=== PATIENT | female | born 1950 | race Caucasian/White ===

== ENCOUNTER 2020-09-28 10:28 | Outpatient (REF) | payer MEDICARE, SELFPAY ==
[2020-09-28 11:28] LABS: MANUAL DIFF FLAG NO
[2020-09-28 11:51] LABS: Basophils Percent Auto 0.6 % (0-2); Eosinophils Absolute Auto 0.1 X10*3/uL (0.0-0.4); Hematocrit 44.2 % (37-47); Hemoglobin 14.8 g/dl (12.0-16.0); Imm Gran Abs Auto 0.02 X10*3/uL (0.00-0.03); Imm Gran Pct Auto 0.3 % (0.0-0.4); Lymphocytes Absolute Auto 1.3 X10*3/uL (1.2-4.9); Lymphocytes Percent Auto 18.3 % (20-40); Mean Corpuscular HGB Conc 33.5 g/dl (31.0-35.0); Mean Corpuscular Hemoglobin 30.1 pg (27.0-33.0); Mean Platelet Volume 10.5 fL (9.4-12.3); Monocytes Absolute Auto 0.5 X10*3/uL (0.1-1.2); Monocytes Percent Auto 7.6 % (2-11); Neutrophils Absolute Auto 5.1 X10*3/uL (2.0-8.3); Neutrophils Percent Auto 72.2 % (45-73); Platelet Count 343 X10*3/uL (160-400); Red Blood Count 4.91 X10*6/uL (4.20-5.50); Red Cell Distribution Width 12.5 % (11.0-16.0); White Blood Count 7.1 X10*3/uL (4.8-10.8)
[2020-09-28 12:13] LABS: Alanine Aminotransferase 16 U/L (0-31); Albumin Level 4.3 g/dL (3.5-5.0); Alkaline Phosphatase 57 U/L (39-117); Anion Gap 13 (12-20); Aspartate Amino Transferase 20 U/L (5-31); Bilirubin Total 0.7 mg/dL (0.0-1.0); Blood Urea Nitrogen 19 mg/dL (9-16); Carbon Dioxide 25 mmol/L (22-29); Chloride 105 mmol/L (96-108); Cholesterol 209 mg/dL; Estimated Glomerular Filt Rate > 60; Glucose Fasting 80 mg/dL (60-99); HDL Cholesterol 54 mg/dL; LDL Cholesterol Calculated 123 mg/dl; Potassium 4.8 mmol/L (3.3-5.1); Sodium 138 mmol/L (135-145); Total Protein 6.8 g/dL (6.5-8.0); Triglycerides 164 mg/dL
[2020-09-28 12:15] LABS: Microalbum/Creatinine Ratio Ur 13.7 ug/mg cr
[2020-09-28 12:23] LABS: Thyroid Stimulating Hormone 1.17 uIU/mL (0.32-4.0)
== END 2020-09-28 10:29 | disposition home or self-care (01) ==
LOC: HO.HMGCLDS 10:28
PROVIDERS: PCP Physician Assistant; Visit Provider Physician Assistant
DX: I10 Essential (primary) hypertension (principal)
CPT/HCPCS: 36415; 80053; 80061; 82043; 84443; 85025

== ENCOUNTER 2021-05-04 08:56 | Outpatient (REF) | payer MEDICARE, SELFPAY ==
[2021-05-04 11:23] LABS: Hematocrit 43.7 % (37.0-47.0); Hemoglobin 14.7 g/dl (12.0-16.0); Mean Corpuscular HGB Conc 33.6 g/dl (31.0-35.0); Mean Corpuscular Hemoglobin 30.1 pg (27.0-33.0); Mean Corpuscular Volume 89.5 fL (80.0-98.0); Mean Platelet Volume 10.3 fL (9.4-12.3); Platelet Count 307 X10*3/uL (160-400); Red Blood Count 4.88 X10*6/uL (4.20-5.50); Red Cell Distribution Width 13.1 % (11.0-16.0); White Blood Count 6.5 X10*3/uL (4.8-10.8)
[2021-05-04 11:25] LABS: Estimated Average Glucose 108 mg/dL; Hemoglobin A1c % 5.4 %
[2021-05-04 11:59] LABS: Alanine Aminotransferase 19 U/L (0-31); Alkaline Phosphatase 54 U/L (39-117); Anion Gap 12 (12-20); Aspartate Amino Transferase 19 U/L (5-31); Bilirubin Total 0.7 mg/dL (0.0-1.0); Blood Urea Nitrogen 10 mg/dL (9-16); Calcium 9.8 mg/dL (8.4-10.2); Carbon Dioxide 28 mmol/L (22-29); Chloride 105 mmol/L (96-108); Cholesterol 238 mg/dL; Estimated Glomerular Filt Rate > 60; Glucose Fasting 83 mg/dL (60-99); HDL Cholesterol 56 mg/dL; LDL Cholesterol Calculated 146 mg/dl; Potassium 4.4 mmol/L (3.3-5.1); Sodium 141 mmol/L (135-145); Total Protein 6.5 g/dL (6.5-8.0); Triglycerides 182 mg/dL
== END 2021-05-04 08:57 | disposition home or self-care (01) ==
LOC: HO.HMGCLDS 08:56
PROVIDERS: PCP Physician Assistant; Visit Provider Physician Assistant
DX: I10 Essential (primary) hypertension (principal)
CPT/HCPCS: 36415; 80053; 80061; 83036; 84443; 85027

== ENCOUNTER 2021-05-09 10:15 | Outpatient (REF) | payer MEDICARE, SELFPAY ==
[2021-05-09 14:30] LABS: Creatinine Urine 195.32 mg/dL; Microalbum/Creatinine Ratio Ur 14.3 ug/mg cr
== END 2021-05-09 10:16 | disposition home or self-care (01) ==
LOC: HO.HMGCLNP 10:15
PROVIDERS: Visit Provider Physician Assistant
DX: I10 Essential (primary) hypertension (principal)
CPT/HCPCS: 82043

== ENCOUNTER 2022-11-12 10:29 | Outpatient (REF) | payer MEDICARE, SELFPAY ==
[2022-11-12 13:52] LABS: Hemoglobin 11.8 g/dl (12.0-16.0); Mean Corpuscular HGB Conc 31.9 g/dl (31.0-35.0); Mean Corpuscular Hemoglobin 28.2 pg (27.0-33.0); Mean Corpuscular Volume 88.3 fL (80.0-98.0); Mean Platelet Volume 10.5 fL (9.4-12.3); Platelet Count 407 X10*3/uL (160-400); Red Blood Count 4.19 X10*6/uL (4.20-5.50); Red Cell Distribution Width 14.5 % (11.0-16.0); White Blood Count 5.5 X10*3/uL (4.8-10.8)
[2022-11-12 14:32] LABS: Alanine Aminotransferase 12 U/L (0-31); Albumin Level 3.8 g/dL (3.5-5.0); Alkaline Phosphatase 48 U/L (39-117); Anion Gap 13 (12-20); Aspartate Amino Transferase 15 U/L (5-31); Bilirubin Total 0.5 mg/dL (0.0-1.0); Blood Urea Nitrogen 13 mg/dL (9-16); Calcium 9.7 mg/dL (8.4-10.2); Carbon Dioxide 26 mmol/L (22-29); Chloride 107 mmol/L (96-108); Cholesterol 189 mg/dL; Estimated Glomerular Filt Rate > 60; Glucose Fasting 92 mg/dL (60-99); HDL Cholesterol 46 mg/dL; LDL Cholesterol Calculated 115 mg/dl; Potassium 3.9 mmol/L (3.3-5.1); Sodium 142 mmol/L (135-145); Total Protein 6.5 g/dL (6.5-8.0); Triglycerides 141 mg/dL
[2022-11-12 16:58] LABS: Creatinine Urine 305.31 mg/dL; Microalbum/Creatinine Ratio Ur 21.6 ug/mg cr
== END 2022-11-12 10:30 | disposition home or self-care (01) ==
LOC: HO.HMGCLDS 10:29
PROVIDERS: PCP Physician Assistant; Visit Provider Physician Assistant
DX: I10 Essential (primary) hypertension (principal); Z78.9 Other specified health status
CPT/HCPCS: 36415; 80053; 80061; 82043; 85027

== ENCOUNTER 2023-09-02 10:01 | Outpatient (AMB) | payer MEDICARE, SELFPAY ==
--- NOTE | 2023-09-02 10:08 | A.OFFPC_ITS ---
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 policy Accompanied by: Self / Same As Patient Allergies erythromycin base Allergy (Unknown, Verified 09/02/23 10:37) vomitting meperidine [Demerol] Allergy (Unknown, Verified 09/02/23 10:37) Unknown pseudoephedrine [Sudafed] Allergy (Unknown, Verified 09/02/23 10:37) mouth swelling Medication List - Last Reconciled 09/02/23 by Tom Mejias PA-C acetaminophen ER (Tylenol Arthritis Pain) 650 mg PO Q8H aspirin (Adult Aspirin Regimen) 81 mg PO DAILY lisinopril-hydrochlorothiazide 20-12.5 mg 1 tab PO DAILY 90 days mecobalamin (vitamin B12) 1,000 mcg PO DAILY pyridoxine (vitamin B6) 25 mg PO DAILY Tobacco use date assessed: 09/02/23 Fall risk assessment: No Falls in past year Last assessed Fall Risk: 09/02/23 Dental Screening Dental Screen Date: 09/02/23 Did you have a dental visit in the last 12 months?: No Did you have a dental problem in the last 6 months where you did not have access to dental care?: No Was dental information given to patient?: Patient has dentist HPI Annual Exam HPI Details Patient is a 73-year-old female here today for annual physical.? Patient has a past medical history significant for hypertension. HTN: ? Today's blood pressure in office acceptable. Pateint is still very active and has adapted to a vegetarian diet.? Has lost a significant amount of intentional weight since last office visit. .. Hyperlipidemia: Most recent lipid panel showing borderline high total cholesterol, patient has been working very hard on a Mediterranean diet and has lost weight since last office visit. Will recheck fasting lipids Of note does have microalbuminuria Vaccine: UTD with COVID vac ( scheduled for booster) , UTd with Flu. Up-to-date with tetanus vaccine, Need shingles vaccine and will get at pharmacy? Colonoscopy: interested in cologaurd * OF NOTE DID GIVE PATIENT HEALTHCARE PROXY PAPERWORK AND MOLST FORM TO FILL OUT WITH HER LOVED ONES. [facility] Surgical History History of lumbar surgery History of appendectomy Family History Father CAD (coronary artery disease) Past heart attack Mother Esophageal cancer Stroke Brother Heart disease Brother No problems noted. Social History Housing: House Patient Tobacco Use Status: Never used Tobacco e-Cigarette/Vaping Use: Never Used Current occupational status: retired Cognitive needs: No Hearing needs: No Vision needs: Yes (glasses) Questionnaire PHQ-9 Over the last 2 weeks, how often have you been bothered by any of the following problems? 1. Little interest or pleasure in doing things: not at all 2. Feeling down, depressed, or hopeless: not at all 3. Trouble falling or staying asleep, or sleeping too much: not at all 4. Feeling tired or having little energy: not at all 5. Poor appetite or overeating: not at all 6. Feeling bad about yourself - or that you are a failure or have let yourself or your family down: not at all 7. Trouble concentrating on things, such as reading the newspaper or watching television: not at all 8. Moving or speaking so slowly that other people could have noticed. Or the opposite - being so fidgety or restless that you have been moving around a lot more than usual: not at all 9. Thoughts that you would be better off or of hurting yourself in some way: not at all Total score: 0 Depression Screening Interpretation: Negative Depression Screening Done: Yes 25688 - PHQ-9 Billing: Yes Source: Developed by Drs. Andre Glover, Katie Good, Pawan Cartwright and colleagues, with an educational kee from [employer]. Thrive Questionnaire Date Thrive assessed: 09/02/23 I am a: Patient What is your living situation today?: I have a steady place to live Within the past 12 months, did the food you bought not last and you didn't have the money to get more?: Never true Within the past 12 months, did you worry whether your food would run out before you got money to buy more?: Never true Do you have trouble paying for medicines?: No Do you have trouble getting transportation to medical appointments?: No Do you have trouble paying your heating and electricity bill?: No Do you have trouble taking care of your child, family member or friend?: No Do you have trouble with day-to-day activities such as bathing, preparing meals, shopping, managing finances, etc.?: No Are you currently unemployed and looking for a job?: No Are you interested in more education?: No Please select the resources that you would like help with: None THRIVE Score: 0 AUDIT C Alcohol Use Questionnaire (AUDIT-C) 1. How often do you have a drink containing alcohol?: Never 3. How often do you have six or more drinks on one occasion?: Never Total Score: 0 MIGUEL A-7 AMB Questionnaire MIGUEL A-7 Date MIGUEL A - 7 assessed: 09/02/23 Feeling nervous, anxious, or on edge: 0 = Not at all Not being able to stop or control worryin = Not at all Worrying too much about different things: 0 = Not at all Trouble relaxin = Not at all Being so restless that it is hard to sit still: 0 = Not at all Becoming easily annoyed or irritable: 0 = Not at all Feeling afraid as if something awful might happen: 0 = Not at all Total MIGUEL A-7 score (0-4 normal; 5-9 mild; 10-14 moderate; 15-21 severe): 0 Source: Developed by Drs. Andre Glover, Katie Good, Pawan Cartwright and colleagues, with an educational kee from [employer]. Review of Systems Const Denies body aches, Denies chills, Denies excessive sweating, Denies fatigue, Denies fever(s) and Denies headache(s) Eyes Denies blurry vision ENT Denies dysphagia, Denies vertigo, Denies dizziness, Denies headache(s), Denies hearing loss and Denies tinnitus Card Denies chest pain, Denies chest pain with activity, Denies syncope, Denies irregular heart rhythm and Denies dyspnea Resp Denies chest congestion, Denies cough, Denies hemoptysis, Denies dyspnea and Denies wheezing GI Denies abdominal pain, Denies melena, Denies hematochezia, Denies coffee ground emesis, Denies dysphagia, Denies diarrhea, Denies nausea and Denies vomiting Denies urinary frequency, Denies dysuria, Denies urinary hesitancy and Denies urinary urgency Musc Denies arthralgias, Denies limited range of motion, Denies muscle cramps and Denies muscle weakness Skin/Breast Denies rash and Denies skin ulcer Neuro Denies Abnormal speech present, Denies confusion, Denies vertigo, Denies dizziness, Denies syncope, Denies headache(s), Denies memory loss and Denies seizure-like activity Psych Denies anxiety, Denies confusion, Denies depression, Denies memory loss, Denies panic attacks and Denies paranoia Endo Denies excessive sweating, Denies fatigue, Denies flushing, Denies polydipsia and Denies polyuria Aller/Immun Denies wheezing Physical exam (Primary Care) Vital Signs: Last Vital Signs Pulse 70 09/02/23 10:09 BP 120/60 09/02/23 10:09 Pulse Ox 98 09/02/23 10:09 Oxygen Delivery Method Room Air 09/02/23 10:09 BMI result Body Mass Index 22.5 Tobacco/Smoking Status: Tobacco use Status Tobacco use date assessed 09/02/23 09/02/23 10:10 Patient Tobacco Use Status Never used Tobacco 09/02/23 10:10 e-Cigarette/Vaping Use Never Used 09/02/23 10:10 PHQ-9: PHQ-9 Score PHQ-9: Total score 0 09/02/23 10:52 Depression Screening Interpretation: Negative Thrive Assessment: Date of Thrive Assessment Date Thrive assessed 09/02/23 09/02/23 10:10 Const General: cooperative, comfortable, no acute distress, alert and awake; No confusion Orientation/consciousness: oriented to person, oriented to place, patient oriented x3 and No confusion HENMT Head: Yes normocephalic Ears: external ears normal and TM's normal bilaterally Face and sinus: No sinus tenderness Mouth: Normal oral and palatal mucosa present and tongue normal Teeth and gingiva: dentition normal and gingiva normal Throat: Yes posterior oropharynx normal, Yes tonsils normal and Yes uvula midline Eyes Conjunctivae: conjunctivae normal Sclerae: sclerae normal Pupils: Equal, round and reactive pupils present EOM: EOMs intact bilaterally Direct Ophthalmoscopy: No no photophobia Neck Neck: Yes no lymphadenopathy, No tender and Yes no JVD Thyroid: Thyroid normal Carotids: no bruits Chest Chest palpation & inspection: no tenderness Resp Effort & Inspection: normal respiratory effort, no audible wheezes, not labored and no stridor Auscultation: no crackles, no rales, no rhonchi and no wheezes Cardio Jugular venous distension: no JVD Rate: regular rate, not bradycardic and not tachycardic Rhythm: regular rhythm Bruits: no carotid bruits Peripheral pulses: Peripheral pulses 2+ throughout GI Inspection: Yes normal to inspection, No abdominal wall ecchymosis and No visible herniation Palpation (GI): Soft to palpation, nontender, no guarding, not rigid and No hepatosplenomegaly present Auscultation: normoactive bowel sounds General: Yes no CVA tenderness Back/Spine/Pelvis Back: no CVA tenderness and No back tenderness Cervical Spine: cervical ROM normal Thoracic/Lumbar Spine: thoracic and lumbar spine normal to inspection, straight leg raise negative bilaterally, No thoraco-lumbar ROM limited and No lumbar spinal tenderness Skin Lesions: no lesions Rashes: no rashes Wounds: no wounds Neuro General: oriented to person, oriented to place, patient oriented x3, CN's II-XI intact bilaterally and No confusion Cranial nerves: Yes Equal, round and reactive pupils present and Yes Normal accommodation reflex present Cognition (Neuro): normal cognition Speech: No Abnormal speech present Gait exam (Neuro): Normal gait present Motor exam (neuro): 5/5 motor strength present throughout Extrem Right upper extremity: full ROM; no cyanosis Left upper extremity: full ROM; no cyanosis Right lower extremity: no edema Left lower extremity: no edema Psych Appearance: grossly normal Mental Status: mental status grossly normal Affect: normal affect Attitude: cooperative Thought process: Normal thought process present Assessment and Plan Assessment & Plan (1) Annual physical exam: Code(s): Z00.00 - Encounter for general adult medical examination without abnormal findings (2) Borderline high cholesterol: Code(s): E78.9 - Disorder of lipoprotein metabolism, unspecified Plan: Most recent lipid panel showing borderline high total cholesterol. Has been working on lifestyle modifications to reduce her high cholesterol. Has been on a Mediterranean diet. Will recheck lipid panel to ensure total cholesterol acceptable. (3) HTN (hypertension): Code(s): I10 - Essential (primary) hypertension Qualifiers: Hypertension type: primary hypertension Qualified Code(s): I10 - Essential (primary) hypertension Plan: Patient's blood pressure today in office acceptable. Will continue her current dose of lisinopril with goal blood pressure to be below 140/90 (4) Colon cancer screening: Code(s): Z12.11 - Encounter for screening for malignant neoplasm of colon Plan: Willing to do Cologuard (5) Microalbuminuria: Code(s): R80.9 - Proteinuria, unspecified Plan: Noted slight microalbuminuria most recent urine. Will continue to follow. Blood pressures have been stable. Orders: Orders Comprehensive [place]. Panel Fast Today I10 - Essential (primary) hypertension Complete Blood Count no Diff Today I10 - Essential (primary) hypertension Lipid Panel Today E78.9 - Disorder of lipoprotein metabolism, unspecified Microalbumin, Random (w Creat) Today I10 - Essential (primary) hypertension Referrals Cologuard Test Z12.11 - Encounter for screening for malignant neoplasm of colon Patient Instructions: Goal: Blood pressure to remain below 140/90 Barriers: Adherence to medication, healthy eating habits and physical activity. Coding Level of Care Code Est Pt Prev Care >65y(61553) Diagnoses Annual physical exam Z00.00 Borderline high cholesterol E78.9 Primary hypertension I10 Hypertension type: primary hypertension Colon cancer screening Z12.11 Microalbuminuria R80.9
[2023-09-02 10:09] VITALS: BP 120/60; PULSE 70; O2SAT 98; BMI 22.5
== END 2023-09-02 11:00 | disposition home or self-care (01) ==
PROVIDERS: Visit Provider Physician Assistant
DX: Z00.00 Encounter for general adult medical examination without abnormal findings (principal); E78.9 Disorder of lipoprotein metabolism, unspecified; I10 Essential (primary) hypertension; Z12.11 Encounter for screening for malignant neoplasm of colon; R80.9 Proteinuria, unspecified
CPT/HCPCS: 99397

== ENCOUNTER 2023-09-03 09:15 | Outpatient (REF) | payer MEDICARE, SELFPAY ==
[2023-09-03 10:26] LABS: Hematocrit 40.2 % (37.0-47.0); Hemoglobin 13.7 g/dl (12.0-16.0); Mean Corpuscular HGB Conc 34.1 g/dl (31.0-35.0); Mean Corpuscular Hemoglobin 30.3 pg (27.0-33.0); Mean Corpuscular Volume 88.9 fL (80.0-98.0); Mean Platelet Volume 10.1 fL (9.4-12.3); Platelet Count 327 X10*3/uL (160-400); Red Blood Count 4.52 X10*6/uL (4.20-5.50); Red Cell Distribution Width 12.6 % (11.0-16.0); White Blood Count 6.6 X10*3/uL (4.8-10.8)
[2023-09-03 11:04] LABS: Alanine Aminotransferase 11 U/L (0-31); Albumin Level 3.9 g/dL (3.5-5.0); Alkaline Phosphatase 55 U/L (39-117); Anion Gap 13 (12-20); Aspartate Amino Transferase 13 U/L (5-31); Bilirubin Total 0.7 mg/dL (0.0-1.0); Blood Urea Nitrogen 15 mg/dL (9-16); Carbon Dioxide 25 mmol/L (22-29); Chloride 107 mmol/L (96-108); Cholesterol 204 mg/dL (<200); Estimated Glomerular Filt Rate > 60; Glucose Fasting 76 mg/dL (60-99); HDL Cholesterol 49 mg/dL (>40); LDL Cholesterol Calculated 126 mg/dL (<100); Sodium 141 mmol/L (135-145); Total Protein 6.6 g/dL (6.5-8.0); Triglycerides 148 mg/dL (<150)
[2023-09-03 14:21] LABS: Creatinine Urine 147.47 mg/dL; Microalbum/Creatinine Ratio Ur 15.5 ug/mg cr (<30)
== END 2023-09-03 09:16 | disposition home or self-care (01) ==
LOC: HO.HMGCLDS 09:15
PROVIDERS: PCP Physician Assistant; Visit Provider Physician Assistant
DX: E78.9 Disorder of lipoprotein metabolism, unspecified (principal); I10 Essential (primary) hypertension
CPT/HCPCS: 36415; 80053; 80061; 82043; 82570; 85027

== ENCOUNTER 2024-11-08 08:56 | Emergency (ER) | payer MEDICARE, SELFPAY ==
--- NOTE | ~2024-11-08 | CT_ITS ---
CLINICAL HISTORY: L ABD pain, N V CT abdomen and pelvis with IV contrast Comparison: None Findings: Lung bases show no active disease. No dependent layering pleural effusions. The heart is not enlarged. Coronary artery calcifications: None. Moderate-size sliding hiatal hernia. Liver normal size and contour. Circumscribed subcapsular lesion right lobe of the liver measuring 3.2 cm with dystrophic calcification septation and fluid attenuation follow-up with contrast-enhanced MRI. Patent hepatic and portal veins. Dependent gallstones. Homogeneous enhancement of the pancreas. No splenomegaly. Normal adrenal glands. Symmetrical renal excretion with no segmental or diffuse renal parenchymal disease or evidence of obstructive uropathy/hydroureteronephrosis. Nephrolithiasis on the left. Parapelvic cysts bilaterally Normal caliber abdominal aorta. Bowel demonstrates a nonobstructive pattern. No free air. Appendix not visualized. Diverticulosis coli without CT evidence of acute diverticulitis. No intraperitoneal, retroperitoneal, pelvic or inguinal masses lymphadenopathy or abnormal fluid collections. Cystic lesion in the left adnexa measuring 6.4 x 6.6 cm correlate with pelvic sonogram. Increased stool burden. Normal distention of the urinary bladder. Moderate wedge compression fracture T12 vertebra. Mild central compression deformity T11 vertebral body. No spondylolysis or spondylolisthesis. Impression: 1. 6.4 x 6.6 cm probable cyst left adnexa correlate with pelvic sonogram. 2. Diverticulosis coli without evidence of acute diverticulitis. Appendix not visualized but no secondary signs of acute appendicitis. Increased stool burden. Cholelithiasis without evidence of cholecystitis. 3. Indeterminate circumscribed lesion right lobe of the liver needs further workup with MRI. Moderate-size sliding hiatal hernia. This document has been electronically signed by: Munir English MD on 11/08/2024 11:39:02
--- NOTE | ~2024-11-08 | US_ITS ---
CLINICAL HISTORY: LLQ pain, large adnexal cyst, ?torsion US pelvis transabdominal and transvaginal with Doppler Comparison: CT/SR - CT ABDOMEN PELVIS W IV CON - 11/08/24 10:12 EDT Findings: Transabdominal scanning performed for overall anatomy. Transvaginal scanning performed for additional detail. Anteverted uterus is 5.8 cm length. Small calcified fibroid associated with the left uterine body. The endometrial canal is distended with fluid. Distention of the endometrial canal measures up to 8 mm. Not including the fluid, the endometrial thickness is estimated at 4 mm. There is a 7 x 4 x 6 mm nodule within the endometrial canal. Right ovary 3.2 x 1 x 2.4 cm. Left ovary 9.8 x 6 x 8.4 cm. There is a 6.2 x 5.9 x 6.1 cm minimally complex cyst containing a couple of septations within the left ovary. Normal color Doppler with arterial/venous spectral tracing of both ovaries. Trace free fluid within the cul-de-sac. IMPRESSION: 1. Small endometrial polyp. Fluid within the endometrial canal. 2. There is a 6.2 cm left ovarian cyst. Consider surgical consult. 3. There is a trace amount of free fluid within the cul-de-sac. 4. No evidence of ovarian torsion. This document has been electronically signed by: Brandy Pope MD on 11/08/2024 15:14:23
[2024-11-08 09:02] VITALS: BP 180/78; PULSE 67; RESP 20; TEMP 35.9; O2SAT 100; BMI 22.1
--- NOTE | 2024-11-08 09:22 | ECG_ITS ---
Test Reason : abdominal pain Blood Pressure : */* mmHG Vent. Rate : 57 BPM Atrial Rate : * BPM P-R Int : * ms QRS Dur : 70 ms QT Int : 426 ms P-R-T Axes : * 31 81 degrees QTcB Int : 414 ms Artifact in tracing Possible sinus rhythm Due to artifact, cannot assess ST-T segments. No previous ECGs available Referred By: Nasra Becerril Electronically Signed By: YOEL JEAN
[2024-11-08 09:41] LABS: MANUAL DIFF FLAG NO
[2024-11-08 09:43] LABS: Hematocrit 34.6 % (37.0-47.0); Hemoglobin 12.2 g/dl (12.0-16.0); Imm Gran Abs Auto 0.04 X10*3/uL (0.00-0.03); Imm Gran Pct Auto 0.5 % (0.0-0.4); Lymphocytes Absolute Auto 0.5 X10*3/uL (1.2-4.9); Mean Corpuscular HGB Conc 35.3 g/dl (31.0-35.0); Mean Corpuscular Hemoglobin 30.3 pg (27.0-33.0); Mean Corpuscular Volume 85.9 fL (80.0-98.0); NRBC Abs Auto 0.000 X10*3/uL (0.0-0.012); NRBC Pct Auto 0.0 /100WBC (0.0-0.2); Platelet Count 279 X10*3/uL (160-400); Red Blood Count 4.03 X10*6/uL (4.20-5.50); White Blood Count 7.6 X10*3/uL (4.8-10.8)
[2024-11-08 09:49] VITALS: PULSE 66
--- NOTE | 2024-11-08 09:50 | PC.NURSE ---
patient a&ox3, iv inserted, labs drawn, ekg performed, college advisor applied- sinus ayden 60s on monitor, pt c/o abd pain 8/10, rr equal non labored, lle 3+ pitting edema- pt states the edema is not new to her, call elaine within reach, plan of care ongoing.
[2024-11-08 09:55] LABS: Alanine Aminotransferase 10 U/L (0-31); Albumin Level 4.0 g/dL (3.5-5.0); Alkaline Phosphatase 60 U/L (39-117); Anion Gap 13 (12-20); Aspartate Amino Transferase 18 U/L (5-31); Blood Urea Nitrogen 7 mg/dL (9-16); Calcium 9.0 mg/dL (8.4-10.2); Carbon Dioxide 22 mmol/L (22-29); Chloride 110 mmol/L (96-108); Creatinine Clr Calc Pharmacy 59.9; Estimated Glomerular Filt Rate > 60; Lipase 15 U/L (8-78); Magnesium 2.1 mg/dL (1.6-2.6); Potassium 4.0 mmol/L (3.3-5.1); Sodium 141 mmol/L (135-145); Total Protein 6.3 g/dL (6.5-8.0)
[2024-11-08 10:03] LABS: Troponin-I High Sensitivity 5.5 ng/L (<3.5-17.0)
--- NOTE | 2024-11-08 10:11 | PC.NURSE ---
pt to ct scan, will medicate upon her return
[2024-11-08] MEDS: iohexoL 350 MG/ML 100 ML INFUS..BTL IV (10:22)
[2024-11-08 10:36] LABS: Resp Syncy Virus RNA Qual PCR NEGATIVE (Negative); SARS COV2 PCR INHOUSE NEGATIVE (Negative)
--- NOTE | 2024-11-08 10:39 | PC.NURSE ---
pt medicated for pain
--- NOTE | 2024-11-08 10:59 | ED.ABDPAIN ---
HPI - Abdominal Pain General Chief Complaint: Abdominal Pain Stated Complaint: pain in left abd, vomiting, weakness Time Seen by Provider: 11/08/24 09:08 Source: patient Mode of arrival: ambulatory Limitations: no limitations History of Present Illness ED Provider: Nasra Becerril NP HPI narrative: Patient is a 74-year-old female who presents emergency department for evaluation she has been experiencing pain to her left abdomen since yesterday afternoon and began vomiting in the evening. Has had 3-4 episodes of bilious nonbloody emesis since then with persistent nausea and associated chills. Denies history of gastrointestinal problems. She feels generally fatigued. Has not ate or drank much. Denies fevers, chest pain, nausea, vomiting, hematemesis, diarrhea, constipation, hematochezia, melena, dysuria, urinary frequency, urinary urgency, urinary hesitancy, hematuria. Denies ever having a colonoscopy. Related Data Home Medications ?Medication ?Instructions ?Recorded ?Confirmed acetaminophen 650 mg 650 mg PO Q8H 04/18/21 09/02/23 tablet,extended release (Tylenol Arthritis Pain) mecobalamin (vitamin B12) 1,000 1,000 mcg PO DAILY 04/18/21 09/02/23 mcg chewable tablet pyridoxine (vitamin B6) 25 mg 25 mg PO DAILY 04/18/21 09/02/23 tablet Previous Rx's ?Medication ?Instructions ?Recorded lisinopril 20 1 tab PO DAILY 90 days #90 tabs 07/23/25 mg-hydrochlorothiazide 12.5 mg tablet Allergies Allergy/AdvReac Type Severity Reaction Status Date / Time erythromycin base Allergy Unknown vomitting Verified 11/08/24 09:05 meperidine (Demerol) Allergy Unknown Unknown Verified 11/08/24 09:05 pseudoephedrine (Sudafed) Allergy Unknown mouth Verified 11/08/24 09:05 swelling Review of Systems Review of Systems Yes all other systems are reviewed and are negative PMFSH Past Medical History Attestation statement: The following information was validated with the patient. Source: old records reviewed Surgical History History of lumbar surgery History of appendectomy Family History Family History Father CAD (coronary artery disease) Past heart attack Mother Esophageal cancer Stroke Brother Heart disease Brother No problems noted. Social History Social History Housing: House Patient Tobacco Use Status: Never used Tobacco e-Cigarette/Vaping Use: Never Used Current occupational status: retired Cognitive needs: No Hearing needs: No Vision needs: Yes (glasses) Physical Exam ED Vital Signs: Vital Signs - 24 hr 11/08/24 09:02 11/08/24 09:49 11/08/24 12:57 Temperature 96.6 F L 97.9 F Pulse Rate 67 63 Pulse Rate [Left Apical] 66 Respiratory Rate 20 18 Blood Pressure 180/78 H 186/72 H Pulse Oximetry 100 98 Oxygen Delivery Method Room Air Room Air 11/08/24 16:52 Temperature 97.9 F Pulse Rate 63 Pulse Rate [Left Apical] Respiratory Rate 18 Blood Pressure 186/72 H Pulse Oximetry 98 Oxygen Delivery Method Room Air BMI result Body Mass Index 22.1 Appearance: Alert.?Oriented to person, place and time. No acute distress.?Normal affect.?? Neck: Normal inspection.? Neck supple.?? CVS: Heart sounds normal. Normal heart rate and rhythm.? Pulses normal.?? Respiratory: No respiratory distress.? Lung sounds clear to auscultation bilaterally?? Abdomen: Soft with left lower quadrant tenderness upon palpation, minimal tenderness over the left upper quadrant. No CVAT. No rebound tenderness at McBurney's point. Negative psoas sign. Negative Rovsing sign. Negative Dias sign. Normoactive bowel sounds. No pulsatile mass.?? Skin: Skin warm and dry.? Normal skin color.? Extremities: No lower extremity edema.? Neuro: Moves all extremities spontaneously. Sensation intact bilaterally. Ambulates with normal steady gait. Medical Decision Making Medical Decision Making MDM Narrative: Patient is a 74-year-old female with past medical history of hypertension, hyperlipidemia who presents emergency department for evaluation of left-sided abdominal pain with nausea and vomiting as per HPI. She is overall well-appearing, nontoxic, afebrile without tachycardia. She does have notable left lower quadrant tenderness on examination with mild tenderness over the left upper quadrant, no CVA tenderness. She is not hypotensive. She has no peritoneal signs, lower suspicion for acute abdomen. No associated chest pain shortness of breath or URI symptoms to suggest pneumonia, no clinical evidence of DVT or personal history of VTE/malignancy to suggest pulmonary embolism. She is is without chest pain, less likely AAA, aortic dissection. No abdominal tenderness upon palpation, negative Dias sign, unlikely acute cholecystitis, choledocholithiasis, no fever or jaundice to suggest acute cholangitis, may possibly be biliary colic secondary to cholelithiasis. Denies associated acid reflux, no tenderness upon palpation over the epigastrium or left upper quadrant to suggest gastritis, no recent hematemesis history less likely to suggest PUD. Denies excessive alcohol consumption, history of diabetes, lower suspicion acute pancreatitis. No rebound tenderness at McBurney's point, rigidity, guarding to suggest acute appendicitis. Given presence of tenderness of the left lower quadrant with associated nausea, vomiting, concerning for possible diverticulitis, colitis, lower suspicion for GIB. No appreciable hernia to suggest strangulation/incarceration. Lower suspicion for bowel obstruction. No distention or rigidity to suggest GI perforation. No associated genitourinary symptoms to suggest UTI/pyelonephritis, renal colic, hydronephrosis. 13:15 CT of the abdomen and pelvis reveals a 6.4 X6.6 cm probable left adnexal cyst, diverticulosis but no diverticulitis, increased stool burden, cholelithiasis but no evidence of cholecystitis and an incidental finding of a liver lesion, moderate sliding hiatal hernia. Patient was made aware of these incidental findings and discussed outpatient follow-up with PCP Given her left lower quadrant tenderness on examination and size of the adnexal cyst will obtain pelvic ultrasound imaging for further evaluation and to exclude torsion, free fluid, rupture. 16:15 Ultrasound reveals presence of cyst no evidence of torsion, trace amount of fluid in the cul-de-sac. Examination at this time is benign, symptoms greatly improved. Recommend outpatient follow-up for ovarian cyst and given strict return precautions. Differential Diagnosis Differential Diagnoses: The differential diagnosis associated with the presentation includes (See narrative above) Admission/Observation Consideration of admission/observation: Escalation of care including admission/observation considered (See narrative above ) Lab Data MDM Lab Attestation statement: I reviewed the patient's lab results. CBC reveals no leukocytosis she does however have a left shift, no significant anemia or thrombocytopenia. Oval electrolyte derangement. No MITCHELL. LFTs and lipase are unremarkable. High sensitive troponin within normal range. Viral serologies are negative. 11/08/24 09:37 11/08/24 09:37 Labs: Lab Results 11/08/24 Range/Units 09:37 WBC 7.6 (4.8-10.8) X10*3/uL RBC 4.03 L (4.20-5.50) X10*6/uL Hgb 12.2 (12.0-16.0) g/dl Hct 34.6 L (37.0-47.0) % MCV 85.9 (80.0-98.0) fL MCH 30.3 (27.0-33.0) pg MCHC 35.3 H (31.0-35.0) g/dl RDW 13.6 (11.0-16.0) % Plt Count 279 (160-400) X10*3/uL MPV 9.6 (9.4-12.3) fL Immature Gran % (Auto) 0.5 H (0.0-0.4) % Neut % (Auto) 89.4 H (45-73) % Lymph % (Auto) 6.1 L (20-40) % [place] % (Auto) 3.7 (2-11) % Eos % (Auto) 0.0 (0-4) % Baso % (Auto) 0.3 (0-2) % Lymph # (Auto) 0.5 L (1.2-4.9) X10*3/uL [place] # (Auto) 0.3 (0.1-1.2) X10*3/uL Eos # (Auto) 0.0 (0.0-0.4) X10*3/uL Baso # (Auto) 0.0 (0.0-0.2) X10*3/uL Abs Immat Gran (auto) 0.04 H (0.00-0.03) X10*3/uL Absolute Neuts (auto) 6.8 (2.0-8.3) x10*3/uL Absolute Nucleated RBC 0.000 (0.0-0.012) X10*3/uL Nucleated RBC % (auto) 0.0 (0.0-0.2) /100WBC Sodium 141 (135-145) mmol/L Potassium 4.0 (3.3-5.1) mmol/L Chloride 110 H (96-108) mmol/L Carbon Dioxide 22 (22-29) mmol/L Anion Gap 13 (12-20) BUN 7 L (9-16) mg/dL Creatinine 0.66 (0.5-1.4) mg/dL Estim Creat Clear Calc 59.9 Estimated GFR > 60 Random Glucose 122 H (60-115) mg/dL Calcium 9.0 D (8.4-10.2) mg/dL Magnesium 2.1 (1.6-2.6) mg/dL Total Bilirubin 0.9 (0.0-1.0) mg/dL AST 18 (5-31) U/L ALT 10 (0-31) U/L Alkaline Phosphatase 60 (39-117) U/L Troponin I High Sens 5.5 (<3.5-17.0) ng/L Total Protein 6.3 L (6.5-8.0) g/dL Albumin 4.0 (3.5-5.0) g/dL Lipase 15 (8-78) U/L Influenza Type A (PCR) NEGATIVE (Negative) Influenza Type B (PCR) NEGATIVE (Negative) RSV RNA Qual (PCR) NEGATIVE (Negative) SARS-CoV-2 RNA (RT-PCR) NEGATIVE (Negative) Independent Interpretation I performed an independent interpretation of an: EKG (Normal sinus rhythm with ventricular rate of 60, normal LASHON, QTC 420, no ST-elevation) Radiology Impression Discussion of test interpretation with radiology: I have reviewed the radiologist's reading. Radiologist Impression: CT abdomen and pelvis with IV contrast Comparison: None Findings: Lung bases show no active disease. No dependent layering pleural effusions. The heart is not enlarged. Coronary artery calcifications: None. Moderate-size sliding hiatal hernia. Liver normal size and contour. Circumscribed subcapsular lesion right lobe of the liver measuring 3.2 cm with dystrophic calcification septation and fluid attenuation follow-up with contrast-enhanced MRI. Patent hepatic and portal veins. Dependent gallstones. Homogeneous enhancement of the pancreas. No splenomegaly. Normal adrenal glands. Symmetrical renal excretion with no segmental or diffuse renal parenchymal disease or evidence of obstructive uropathy/hydroureteronephrosis. Nephrolithiasis on the left. Parapelvic cysts bilaterally Normal caliber abdominal aorta. Bowel demonstrates a nonobstructive pattern. No free air. Appendix not visualized. Diverticulosis coli without CT evidence of acute diverticulitis. No intraperitoneal, retroperitoneal, pelvic or inguinal masses lymphadenopathy or abnormal fluid collections. Cystic lesion in the left adnexa measuring 6.4 x 6.6 cm correlate with pelvic sonogram. Increased stool burden. Normal distention of the urinary bladder. Moderate wedge compression fracture T12 vertebra. Mild central compression deformity T11 vertebral body. No spondylolysis or spondylolisthesis. Impression: 1. 6.4 x 6.6 cm probable cyst left adnexa correlate with pelvic sonogram. 2. Diverticulosis coli without evidence of acute diverticulitis. Appendix not visualized but no secondary signs of acute appendicitis. Increased stool burden. Cholelithiasis without evidence of cholecystitis. 3. Indeterminate circumscribed lesion right lobe of the liver needs further workup with MRI. Moderate-size sliding hiatal hernia. US pelvis transabdominal and transvaginal with Doppler Comparison: CT/SR - CT ABDOMEN PELVIS W IV CON - 11/08/24 10:12 EDT Findings: Transabdominal scanning performed for overall anatomy. Transvaginal scanning performed for additional detail. Anteverted uterus is 5.8 cm length. Small calcified fibroid associated with the left uterine body. The endometrial canal is distended with fluid. Distention of the endometrial canal measures up to 8 mm. Not including the fluid, the endometrial thickness is estimated at 4 mm. There is a 7 x 4 x 6 mm nodule within the endometrial canal. Right ovary 3.2 x 1 x 2.4 cm. Left ovary 9.8 x 6 x 8.4 cm. There is a 6.2 x 5.9 x 6.1 cm minimally complex cyst containing a couple of septations within the left ovary. Normal color Doppler with arterial/venous spectral tracing of both ovaries. Trace free fluid within the cul-de-sac. IMPRESSION: 1. Small endometrial polyp. Fluid within the endometrial canal. 2. There is a 6.2 cm left ovarian cyst. Consider surgical consult. 3. There is a trace amount of free fluid within the cul-de-sac. 4. No evidence of ovarian torsion. Independent Historian Clinical information obtained from an independent historian. History obtained from or confirmed by: Friend External Record Review External record reviewed: Outpatient record Medications Administered Discontinued Medications Generic Name Dose Route Start Last Admin Trade Name Freq PRN Reason Stop Dose Admin Iohexol 100 ml 11/08/24 10:22 11/08/24 10:22 Iohexol 350 Mg/Ml 100 Ml Infus..Btl IV 11/08/24 10:23 85 ml ONCE ONE Administration Morphine Sulfate 2 mg 11/08/24 09:56 11/08/24 10:28 Morphine Sulfate 2 Mg/Ml Cartridge IVPUSH 11/08/24 09:57 2 mg ONCE ONE Administration Protocol Ondansetron HCl 4 mg 11/08/24 09:56 11/08/24 10:28 Ondansetron Hcl 4 Mg/2 Ml Vial IVPUSH 11/08/24 09:57 4 mg ONCE ONE Administration Critical Care Time Critical Care Time Critical Care Time: Yes Total Critical Care Time: 40 Attestation: Time is exclusive of separately billable procedures. Time includes: direct patient care, patient reassessment, coordination of patient care, interpretation of data (laboratory data, pulse oximetry, CT, morphine IV and re-evaluation), review of patient's medical records, medical consultation and documentation of patient care. Procedures excluded from critical care time: central intravenous line placement and electrocardiography. Discharge Plan Discharge Clinical Impression: Left ovarian cyst, Lesion of liver, Hiatal hernia Cholelithiasis Qualifiers: Cholelithiasis location: gallbladder Cholecystitis presence: without cholecystitis Patient Disposition: Home, Self-Care Instructions: Ovarian Cyst (ED) Additional Instructions: As discussed, your imaging today shows that you have a large left ovarian cyst, this may be the source for the pain that you are experiencing. On imaging today there was no evidence of torsion or twisting as we discussed. It does not appear as though there is significant rupture of the cyst. However, we do recommend outpatient follow-up with OBGYN for further evaluation/treatment should your symptoms persist. Additionally, you were found to have incidental findings on the CT scan of your abdomen and pelvis including diverticulosis, gallstones, and a liver lesion as well as a hiatal hernia. Please make your primary care doctor aware of these findings, you may consider additional outpatient follow-up/imaging as they feel necessary. Prescriptions: No Action lisinopril-hydrochlorothiazide 20-12.5 mg tablet 1 tab PO DAILY 90 Days Qty: 90 0RF mecobalamin (vitamin B12) 1,000 mcg tablet,chewable 1,000 mcg PO DAILY pyridoxine (vitamin B6) 25 mg tablet 25 mg PO DAILY acetaminophen [Tylenol Arthritis Pain] 650 mg tablet extended release 650 mg PO Q8H Referrals: Tom Mejias PA-C [Primary Care Provider, Internal Medicine] Dandre Sandoval MD [Physician, COMMISSIONS ANALYST] Interventions: ED Discharge Assessment Last Done: 11/08/24 16:52 Discharge Date/Time: 11/08/24 16:53 Print Language: Maltese
[2024-11-08 12:57] VITALS: BP 186/72; PULSE 63; RESP 18; TEMP 36.6; O2SAT 98
--- NOTE | 2024-11-08 12:58 | PC.NURSE ---
patient a&ox3, parts picker nsr, pt states her pain has reduced, pt awaiting CT scan results, call elaine within reach, plan of care ongoing.
--- NOTE | 2024-11-08 16:21 | PC.NURSE ---
Tech alerted this RN that pt was wanting to leave, this RN touched base with Kyrie SOFTWARE REVERSE ENGINEER alerting her, at this time pt alerted that the provider just needed to review everything and would be in shortly to discuss dispo, emotional support provided, pt in agreement to wait for discussion at this time.
[2024-11-08 16:52] VITALS: BP 186/72; PULSE 63; RESP 18; TEMP 36.6; O2SAT 98
== END 2024-11-08 16:53 | disposition home or self-care (01) ==
PROVIDERS: Nurse Practitioner Family; Emergency Provider Emergency Medicine; PCP Physician Assistant
DX: N83.202 Unspecified ovarian cyst, left side (principal); K80.20 Calculus of gallbladder without cholecystitis without obstruction; K76.9 Liver disease, unspecified; K44.9 Diaphragmatic hernia without obstruction or gangrene; R10.812 Left upper quadrant abdominal tenderness; R11.2 Nausea with vomiting, unspecified; R10.2 Pelvic and perineal pain; Z03.818 Encounter for observation for suspected exposure to other biological agents ruled out; Z79.899 Other long term (current) drug therapy
CPT/HCPCS: 36415; 74177; 76830; 76856; 80053; 83690; 83735; 84484; 85025; 87637; 93005; 93975; 96374; 96375; 99285; 99291; J2270; J2405; Q9967

== ENCOUNTER → 2024-11-08 09:22 | Outpatient (BNV) | payer MEDICARE, SELFPAY | PROVIDERS: Emergency Provider Emergency Medicine; PCP Physician Assistant; Visit Provider Internal Medicine | DX: R10.9 Unspecified abdominal pain (principal) | CPT/HCPCS: 93010 ==

== ENCOUNTER → 2024-11-08 09:56 | Outpatient (BNV) | payer MEDICARE, SELFPAY | PROVIDERS: Emergency Provider Emergency Medicine; PCP Physician Assistant; Visit Provider Radiology Diagnostic Radiology | DX: K57.30 Diverticulosis of large intestine without perforation or abscess without bleeding (principal); K80.20 Calculus of gallbladder without cholecystitis without obstruction; K76.89 Other specified diseases of liver; N84.0 Polyp of corpus uteri; R93.89 Abnormal findings on diagnostic imaging of other specified body structures; N83.202 Unspecified ovarian cyst, left side | CPT/HCPCS: 74177; 93975 ==